=== PATIENT | male | born 1990 | race Caucasian/White ===

== ENCOUNTER 2020-04-17 12:59 | Emergency (ER) | payer BC, SELFPAY ==
[2020-04-17 13:14] VITALS: BP 146/68; PULSE 107; RESP 20; TEMP 36.6; O2SAT 97
--- NOTE | 2020-04-17 13:26 | ED.GENADULT ---
HPI - General Adult General Chief complaint: Upper Respiratory Infection Stated complaint: EAR PAIN/TAN/POS COVID Time Seen by Provider: 04/17/20 13:30 Source: patient and RN notes reviewed Mode of arrival: ambulatory Limitations: no limitations History of Present Illness HPI narrative: 29 year old male who presents to [facility] with complaints of headache, ear pain, and sinus drainage since Monday. Patient states that he has had no fevers, chills or sweats has been taking Ibuprofen for his headaches, has been fatigued and had a cough. He states that he was with his mother on Monday and also on Monday and she was informed today that she tested positive. MD complaint: exposure to COVID, Headache and ear pain, sinus drainage Onset (ago): day(s) Location: head and face Radiation: non-radiation Severity: mild Severity scale (1-10): 2 Quality: aching Pain Consistency: intermittent Relieving factors: medication Exacerbating factors: none Related Data Home Medications Medication Instructions Recorded Confirmed No Home Medications 04/17/20 04/17/20 Allergies Allergy/AdvReac Type Severity Reaction Status Date / Time No Known Allergies Allergy Unverified 04/17/20 13:17 Review of Systems Review of Systems: Narrative: CONSTITUTIONAL: Denies fever, chills, or sweats. EYES: Denies visual changes, redness, or discharge. ENT: positive rhinorrhea, congestion, sore throat, or otalgia. CARDIOVASCULAR: Denies chest pain, palpitations, or edema. RESPIRATORY: states some cough denies dyspnea. GASTROINTESTINAL: Denies abdominal pain, nausea, vomiting, or diarrhea. GENITOURINARY: Denies dysuria or hematuria. SKIN: Denies rash or itching. MUSCULOSKELETAL: Denies back pain, joint pain, or myalgia. NEUROLOGIC: positive headache, no numbness, or weakness, states fatigue. PSYCHIATRIC: Denies anxiety or depression. All systems reviewed & are unremarkable except as noted in HPI and below PMFSH Surgical History Surgical History (Updated 04/17/20 @ 15:55 by Noris Reyes NP) Hx of thumb surgery Social History Social History (Updated 04/17/20 @ 15:57 by Noris Reyes NP) Smoking status: Never smoker Alcohol intake: current Gender identity (if verbalized by the patient): Male Comments At time of signature, agree with nursing past medical, surgical, social and family history. There is no relevant family history pertinent to the presenting complaint Exam Narrative: Exam Narrative: GENERAL: Well-appearing, well-nourished, and in no acute distress. HEAD: Normocephalic, atraumatic. EYES: PERRLA and EOMI. ENT: Nares red with clear rhinorrhea no epistaxis. Mucous membranes moist.TM's normal with good light reflex, throat pink with some post nasal drainage noted. NECK: Supple.no lymphadenopathy CHEST: Clear to auscultation. No respiratory distress. HEART: Regular rate and rhythm. No murmur heard. Normal peripheral pulses. ABDOMEN: Soft, nontender, nondistended, normal active bowel sounds. EXTREMITIES: Normal range of motion. No edema. SKIN: Warm, dry, no rash. NEURO: No focal deficits. Alert and oriented x3. Course Vital Signs Vital signs: Vital Signs Temperature 36.6 C 04/17/20 13:14 Pulse Rate 107 H 04/17/20 13:14 Respiratory Rate 04/17/20 13:14 Blood Pressure 146/68 H 04/17/20 13:14 Pulse Oximetry 97 04/17/20 13:14 Temperature 36.6 C 04/17/20 13:14 Pulse Rate 107 H 04/17/20 13:14 Respiratory Rate 04/17/20 13:14 Blood Pressure 146/68 H 04/17/20 13:14 Pulse Oximetry 97 04/17/20 13:14 Medical Decision Making Differential Diagnosis Differential Diagnosis: otalgia, sinusitis, URI, cough, positive exposure to covid Medical Records Medical records reviewed: Yes I reviewed the patient's medical records. Vital Signs Vital Signs: Vital Signs Temperature 36.6 C 04/17/20 13:14 Pulse Rate 107 H 04/17/20 13:14 Respiratory Rate 04/17/20 13:14 Blood Pressure 146/
== END 2020-04-17 13:51 | disposition home or self-care (01) ==
PROVIDERS: Emergency Provider Registered Nurse
DX: J06.9 Acute upper respiratory infection, unspecified (principal); Z20.828 Contact with and (suspected) exposure to other viral communicable diseases
CPT/HCPCS: 99211; G0463

== ENCOUNTER 2025-05-22 07:51 | Outpatient (CLI) | payer OTHER, SELFPAY ==
--- OUTSIDE RECORDS SUMMARY | 2025-05-22 08:09 | XMS_ITS | Clinical Summary ---
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 This disclosure is being madepursuant to the Care Everywhere program and may not contain all information available regarding this patient. Last updated 18.[facility] Allergies No known active allergies Medications * Be aware that medications may not be up to date on this document. Alwaysverify current medications with the patient. No known medications Active Problems No known active problems Family History Medical History Relation Name Comments Negative Family History Father Negative Family History Mother Relation Name Status Comments Father Alive Mother Alive Social History Tobacco Use Types Packs/Day Years Used Date Smoking Tobacco: Never Alcohol Use Standard Drinks/Week Comments No 0 (1 standard drink = 0.6 oz pur e alcohol) Sex and Gender Information Value Date Recorded Sex Assigned at Not on file Legal Sex Male 1:57 PM CDT Gender Identity Not on file Sexual Orientation Not on file Last Filed Vital Signs Vital Sign Reading Time Taken Comments Blood Pressure 130/80 09/09/2016 4:03 PM CLINICAL TRIAL SPECIALIST Pulse 94 09/09/2016 4:03 PM CLINICAL TRIAL SPECIALIST Temperature 37.1 C (98.8 F) 09/09/2016 4:03 PM CLINICAL TRIAL SPECIALIST Respiratory Rate 20 09/09/2016 4:03 PM CLINICAL TRIAL SPECIALIST Oxygen Saturation 98% 09/09/2016 4:03 PM CLINICAL TRIAL SPECIALIST Inhaled Oxygen Concentration - - Weight 105.2 kg (232 lb) 09/09/2016 4:03 PM CLINICAL TRIAL SPECIALIST Height 185.4 cm (6' 1) 09/09/2016 4:03 PM CLINICAL TRIAL SPECIALIST Body Mass Index 30.61 09/09/2016 4:03 PM CLINICAL TRIAL SPECIALIST Plan of Treatment Health Maintenance Due Date Last Done Comments HIV SCREENING 12/24/2003 HEPATITIS C SCREENING 12/19/2006 DTAP/TDAP/TD VACCINES (1 - Tdap) 12/24/2007 HEPATITIS B VACCINE (1 of 3 - 19+ 3-dose series) 12/24/2007 HPV VACCINE (1 - 3-dose SCDM series) 12/24/2015 DEPRESSION SCREENING 09/04/2024 COVID-19 VACCINE (1 - 2023-2 5 season) 2025 INFLUENZA VACCINE (#1) 2025 ZOSTER VACCINE (1 of 2) 2038 HIB VACCINE Aged Out No longer eligi ble based on patient's age to complete this topic MENINGOCOCCAL (Group B) VACC INE SHARED DECISION-MAKING Aged Out No longer eligibl e based on patient's age to complete this topic MENINGOCOCCAL GROUPS A/C/Y/W VACCINE Aged Out No longer eligible b ased on patient's age to complete this topic PNEUMOCOCCAL VACCINE Aged Out No long er eligible based on patient's age to complete this topic Care Teams Screen Printing Machine Operator Helper Relationship Specialty Start Date End Date Kiran Mclain MD [address] [facility] [place] [phone] PCP - General Family Medicine 09/09/16
--- NOTE | 2025-05-28 15:20 | P.SLEEP_ITS ---
Sleep Study - Home Unattended Date of Study: 05/22/25 Ordering Provider: Mikhail Stringer MD Interpreting Provider: Evelin Talley MD Home Sleep Study Type: Watch PAT Height: 1.85 m Weight: 131.542 kg Body Mass Index: 38.2 Neck Circumference (inches): 18 [place]: 14 Reason for Sleep Study Hypersomnolence Sleep History Iftikhar Sanderson is a 34-year-old man with excessive daytime sleepiness. His medical comorbidities include hypertension, generalized anxiety and hyperlipidemia. He chokes and gasps during the night. He does not wake with a morning headache and he does not report difficulty breathing when he is sleeping on his back but he does awaken with a dry mouth and a sore throat and he has nocturnal heartburn. He does not wakle at night to urinate. He has never had a prior sleep study. He does not have difficulty falling asleep at bedtime, however if he awakens at night, he has difficulty returning to sleep. He wakes up earlier than he would like to wake up. He does not feel anxious about his sleep. He is tired and sleepy during the day, he is not refreshed on waking. He has an urge to fall asleep during the day and he has drowsy driving. He does not have an urge to move his legs in the evening, nor does he kick or jerk his legs at night fit. He does clench and grind his teeth. He does not have muscle weakness with strong emotion, paralysis on falling asleep or on waking, vivid dreamlike scenes upon falling asleep more waking nor does he have dreams during daytime naps. His insomnia severity index is 16, elevated, consistent with moderate insomnia. His [place] Sleepiness Scale is 14 elevated consistent with excessive daytime sleepiness. Normal bedtime is 10:00 p.m., falling asleep within 15 minutes, spending 8 hours in bed and most all of that time asleep. On days off his bedtime is 11:00 p.m., falling asleep within 15 minutes, spending 10 hours in bed and most of that time asleep. He feels a little more restored on waking on his days off compared to work days. Habits:??Tobacco: none Caffeine:3-4 cups daily Alcohol: 1-2 nights out of a week, 2 glasses Recreational substances: none PMFSH Past Medical History Medical History (Updated 05/28/25 @ 15:40 by Evelin Talley MD) WILLIAM (generalized anxiety disorder) Mixed hyperlipidemia Benign essential hypertension Surgical History Surgical History Hx of thumb surgery Social History Social History Smoking status: Never smoker Second hand tobacco smoke exposure: No Alcohol intake: current Alcohol use details: social Substance use: never Substance use type: does not use Do You Feel Safe in your Home?: Yes Lack of Transportation: No Lack of Food: Never True Current Housing: I Have Housing Concerned About Future Housing: No Difficulty Paying Gas/Electric Bills: No Difficulty Paying for Meds: No Currently Unemployed: No Education: Don't Know Difficulty w/ Childcare or Family Care: No Living arrangements: alone Occupation/Education: occupation Gender identity (if verbalized by the patient): Male Sexual Orientation (if Verbalized by the Patient): Straight or Heterosexual Medications Home Medications ?Medication ?Instructions ?Recorded ?Confirmed ?Type hydroxyzine HCl 25 mg tablet 25 mg PO TID PRN anxiety #90 tabs 12/17/24 05/09/25 Rx escitalopram oxalate 10 mg tablet 10 mg PO DAILY #90 t abs 05/16/25 Rx irbesartan 150 mg tablet 150 mg PO DAILY #90 tabs 08/28 Rx Sleep Procedure The sleep study was completed using KloudlessT a technically adequate device with seven channels: peripheral arterial tone, actigraphy, body position, snore, respiratory movement, pulse oximetry, sleep staging, and heart rate. Prior to using the device, the patient received verbal and written instructions for its application and was provided with the help desk phone number for additional telephonic instruction with 24-hour availability of qualified personnel to answer questions. Sleep Architecture The total recording time is 8 hrs, 6 min. The total sleep time is 7 hrs, 32 min. Sleep latency is 23 minutes. REM latency is 214 minutes. The patient had 4 episodes of waking. Sleep architecture shows 6.9% deep sleep, 73.6% light sleep, and 19.6% stage REM. The patient spent 51.9% of total sleep time in the supine position. Sleep efficiency was 93%. Respiratory Analysis The overall AHI (pAHI 3%:) is 73.1. The central AHI is 3.6. The AHI was 81.7 in NREM and 40.9 in REM sleep. The AHI was 64.0 in Supine and 83.1 in Non-supine sleep. Percent of Usama Mcadams respirations is 19.3. Oximetry Data The oxygen desaturation index (BETO 4%:) is 67.2. The mean saturation is 90%, and the lowest saturation is 62%. Time spent with saturation < 88% is 126.3 minutes. Snoring Profile Snoring average intensity is 46 dB. The patient snored above 45 decibels for 150.6 minutes, 33.3% of sleep time. Cardiac Profile The average pulse rate is 81beats per minutes. The lowest pulse rate is 46 bpm. The highest pulse rate is 162 bpm. Cardiac rhythm analysis in sleep does not sh ow atrial fibrillation. Assessment and Plan Assessment and Plan (1) Obstructive sleep apnea: Code(s): G47.33 - Obstructive sleep apnea (adult) (pediatric) Status: Acute Assessment and Plan: This home sleep test using WatchPat on 05/22/2024 shows extremely severe obstructive sleep apnea overall apnea-hypopnea index is 73.1 (p >3%) with desaturation to 62% loud snoring and 126.3 minutes, 27.9% the test spent below 88% saturation. The patient spent 19.3% the study with Usama-Mcadams respiration with overall a low central apnea index of 3.6. He needs to have a CPAP titration as soon as this can be scheduled, and a sleep aid available to use, if needed, to get to sleep and stay asleep dueing the night. He should be instructed to take no naps on the day of the study. Effective sleep aids to consider include Ambien 5 mg -10 mg or Lunesta 2 mg - 3 mg. Due to his high percentage of Usama-Mcadams breathing 19.3% of the night and his tachycardia, he should have an echocardiogram to evaluate for LV dysfunction. Tachycardia to 162 beats per minute is not normal during sleep. Clinical correlation is advised. BMI is 38.3. Weight management is advised. Clinical data suggests that weight loss of 10% can reduce the severity of respiratory events and snoring and improve AHI by as much as 25%. Data The data obtained during this sleep study is adequate for interpretation. Certification This sleep study has been reviewed by a board certified sleep medicine physician.
[2025-05-28 15:51] VITALS: BMI 38.2
== END 2025-05-23 13:39 | disposition home or self-care (01) ==
LOC: ANHCSM 07:51
PROVIDERS: PCP Family Medicine; Visit Provider Family Medicine
DX: G47.33 Obstructive sleep apnea (adult) (pediatric) (principal); G47.10 Hypersomnia, unspecified
CPT/HCPCS: 95800